=== PATIENT | male | born 2000 | race Caucasian/White ===

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

== ENCOUNTER 2021-09-05 03:08 | Outpatient (CLI) | payer OTHER, SELFPAY ==
[2021-09-05 11:21] LABS: Calculated LDL 82 mg/dL (<100); Cholesterol 150 mg/dL (<200); HDL Cholesterol 59 mg/dL (40-60); Triglyceride 45 mg/dL (<150)
[2021-09-06 09:21] LABS: HIV-1/2 Ag & Ab Screen Negative (Negative)
[2021-09-08 11:09] LABS: Syphilis Serology (RPR) Negative (Negative)
== END 2021-09-05 03:09 | disposition home or self-care (01) ==
LOC: LBO 03:08
PROVIDERS: PCP Nurse Practitioner; Visit Provider Nurse Practitioner
DX: Z13.6 Encounter for screening for cardiovascular disorders (principal); Z11.3 Encounter for screening for infections with a predominantly sexual mode of transmission; Z11.4 Encounter for screening for human immunodeficiency virus [HIV]
CPT/HCPCS: 36415; 80061; 87389; 87491; 87591; 86592

== ENCOUNTER 2021-09-09 22:06 | Outpatient (REF) | payer OTHER, SELFPAY ==
[2021-09-11 14:37] LABS: Chlamydia Result Negative (Negative); GC Result Negative (Negative)
== END 2021-09-09 22:07 | disposition home or self-care (01) ==
LOC: LBN 22:06
PROVIDERS: PCP Nurse Practitioner; Visit Provider Nurse Practitioner
DX: Z11.3 Encounter for screening for infections with a predominantly sexual mode of transmission (principal)
CPT/HCPCS: 87491; 87591

== ENCOUNTER 2022-09-07 19:00 | Outpatient (REF) | payer OTHER, SELFPAY ==
[2022-09-09 09:46] LABS: Hepatitis C Ab w Rflx HCV PCR Negative (Negative)
[2022-09-09 10:01] LABS: HIV-1/2 Ag & Ab Screen Negative (Negative)
[2022-09-09 11:49] LABS: Syphilis Serology (RPR) Negative (Negative)
[2022-09-09 13:44] LABS: Chlamydia Result Negative (Negative); GC Result Negative (Negative)
== END 2022-09-07 19:01 | disposition home or self-care (01) ==
LOC: LBN 19:00
PROVIDERS: PCP Nurse Practitioner Family; Visit Provider Nurse Practitioner Family
DX: Z11.3 Encounter for screening for infections with a predominantly sexual mode of transmission (principal); Z11.4 Encounter for screening for human immunodeficiency virus [HIV]; Z11.59 Encounter for screening for other viral diseases
CPT/HCPCS: 86803; 87389; 87491; 87591; 86592